=== PATIENT | male | born 1980 | race Caucasian/White ===

== ENCOUNTER 2021-04-02 07:33 | Emergency (ER) | payer OTHER, SELFPAY ==
--- NOTE | ~2021-04-02 | XR_ITS ---
EXAMINATION: XR finger 4th RT min 2V EXAM DATE: 04/02/2021 08:13 INDICATION: smashed 4th finger this AM, laceration tip of finger . TECHNIQUE: Right 4th finger frontal, lateral and oblique projections obtained and reviewed. There is no prior study for comparison. FINDINGS: There are no acute right 4th finger fractures or dislocations identified. There is no subc utaneous gas. Laceration and at the fingertip. There are no radiopaque foreign bodies. IMPRESSION: Right 4th fingertip laceration. Reviewed, dictated and finalized at location A. 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
[2021-04-02 07:33] VITALS: BP 133/94; PULSE 84; RESP 16; TEMP 36.4; O2SAT 98
--- NOTE | 2021-04-02 07:49 | ED.WOUNDLAC ---
HPI - Wound/Laceration General Chief Complaint: Wound/Laceration Stated Complaint: finger lac Time Seen by Provider: 04/02/21 07:40 History of Present Illness HPI narrative: Patient is a 40-year-old male who presents to the ED with injury to the right fourth digit tip. He got it slammed in a outdoor furnace door. He has a laceration over the tip. No numbness or tingling. He does have throbbing pain. Unknown last tetanus shot. Range of motion intact. Related Data Home Medications Medication Instructions Recorded Confirmed No Home Medications 04/02/21 04/02/21 Allergies Allergy/AdvReac Type Severity Reaction Status Date / Time No Known Allergies Allergy Mild Verified 04/02/21 07:53 Review of Systems Musculoskeletal: Musculoskeletal: Denies arthralgias, Denies joint swelling and Denies muscle cramps Integumentary/Breasts: Skin/Breast: Denies erythema and Denies rash Comments: Finger laceration Neurologic: Denies focal weakness and Denies numbness PMFSH Past Medical History Medical History (Updated 04/02/21 @ 08:54 by Mo Musa MD) Healthy adult male Surgical History Surgical History (Updated 04/02/21 @ 07:51 by Mo Musa MD) History of hernia repair Social History Social History (Updated 04/02/21 @ 07:51 by Mo Musa MD) Smoking status: Never smoker Exam Narrative: GENERAL: Well-appearing, well-nourished, and in no acute distress. HEAD: Normocephalic, atraumatic. EXTREMITIES: Normal range of motion with isolation of the joints of the right fourth digit. 1.5 cm laceration over the fat pad of the fourth digit on the right hand is well approximated and does not involve nail bed. SKIN: Warm, dry, no rash. NEURO: Alert and oriented x3. Neurovascular intact in affected hand. PSYCH: Normal mood and affect. Course Course Emergency Course: Laceration repaired. Discharge home. Vital Signs Vital signs: Vital Signs Temperature 97.6 F 04/02/21 07:33 Pulse Rate 84 04/02/21 07:33 Respiratory Rate 16 04/02/21 07:33 Blood Pressure 133/94 H 04/02/21 07:33 Pulse Oximetry 98 04/02/21 07:33 Temperature 97.6 F 04/02/21 07:33 Pulse Rate 84 04/02/21 07:33 Respiratory Rate 16 04/02/21 07:33 Blood Pressure 133/94 H 04/02/21 07:33 Pulse Oximetry 98 04/02/21 07:33 Procedures Laceration Laceration 1: Date: 04/02/21 Time: 08:50 Site: other (right 4th digit) Size (cm): 1.5 Description: linear Depth: simple, single layer Local Anesthetic: lidocaine 1% and with epi Amount of anesthesia used (mL): 1.5 Pre-repair: irrigated and other (soap and water) ====== Skin Level ====== Skin layer closed with: nylon Size (cm): 5-0 Number of sutures: 4 Technique: simple, interrupted ====== Subcutaneous Layer ====== ====== Muscle Layer ====== ====== Tendon Layer ====== MDM - Wound/Laceration Imaging Data Radiologist's impression: ITS Impressions Finger X-Ray 04/02/21 08:17 IMPRESSION: Right 4th fingertip laceration. Discharge Plan Discharge Clinical Impression: Laceration Patient Disposition: Home, Self-Care Condition: Stable Instructions: Care For Your Stitches (ED), Laceration (ED) Additional Instructions: Remove your sutures in 10 to 14 days. Return the ER if your finger is red and hot, the wound is draining pus, you have additional concerns. Prescriptions: No Action No Home Medications RF: 0 Follow-up/Referrals: PHYSICIAN,INFRASTRUCTURE ADMINISTRATOR [Primary Care Provider] - Mesfin Hopkins MD [Physician] - 2 Weeks
[2021-04-02] MEDS: TETANUS,DIPHTHERIA,AC PERTUSSIS ADULT (0.5 ML) BOOSTRIX IM (08:16)
== END 2021-04-02 09:35 | disposition home or self-care (01) ==
PROVIDERS: Emergency Provider Emergency Medicine
DX: S61.214A Laceration without foreign body of right ring finger without damage to nail, initial encounter (principal); Z23 Encounter for immunization; W23.0XXA Caught, crushed, jammed, or pinched between moving objects, initial encounter
CPT/HCPCS: 12001; 73140; 90471; 90715; 99282